=== PATIENT | female | born 1970 | race Caucasian/White ===

== ENCOUNTER → 2019-03-07 | Outpatient (CLI) | payer OTHER | END | disposition home or self-care (01) | LOC: LAB EV 18:35 → LAB SHORT 18:35 | DX: N39.0 Urinary tract infection, site not specified (principal) | CPT/HCPCS: 87077; 87086; 87186 ==

== ENCOUNTER → 2019-06-26 | Outpatient (CLI) | payer OTHER | LOC: LAB EV 19:04 → LAB SHORT 19:04 | DX: N39.0 Urinary tract infection, site not specified (principal) | CPT/HCPCS: 87077; 87086; 87147; 87186 ==

== ENCOUNTER → 2019-08-10 | Outpatient (CLI) | payer OTHER | LOC: LAB SHORT 19:13 → LAB EV 19:13 | DX: N39.0 Urinary tract infection, site not specified (principal) | CPT/HCPCS: 87077; 87086; 87147; 87186 ==

== ENCOUNTER → 2019-09-13 | Outpatient (CLI) | payer OTHER | LOC: LAB EV 18:48 → LAB SHORT 18:48 | DX: N39.0 Urinary tract infection, site not specified (principal) | CPT/HCPCS: 87077; 87086; 87186 ==

== ENCOUNTER → 2019-09-20 | Outpatient (CLI) | payer OTHER | END | disposition home or self-care (01) | LOC: LAB 18:37 → LAB SHORT 18:37 | DX: R82.90 Unspecified abnormal findings in urine (principal) | CPT/HCPCS: 87086 ==

== ENCOUNTER 2019-09-30 22:01 | Emergency (ER) | payer OTHER ==
[~2019-09-30] VITALS: Ht 170.2 cm; Wt 158.8 kg
[2019-09-30] MEDS ORDERED: Xylocaine 2% In20 ML INJ (22:38)
[2019-09-30] MEDS ORDERED: NYST237S MT (22:51)
== END 2019-09-30 22:58 | disposition home or self-care (01) ==
LOC: ER 22:01
DX: K13.0 Diseases of lips (principal)
CPT/HCPCS: 99282

== ENCOUNTER → 2020-02-07 | Outpatient (CLI) | payer OTHER ==
[~2020-02-07] MED LIST: NYST237S MT; Xylocaine 2% In20 ML INJ
== END ==
LOC: LAB SHORT 19:29 → LAB 19:29
PROVIDERS: Nurse Practitioner Family
DX: Z01.419 Encounter for gynecological examination (general) (routine) without abnormal findings (principal)
CPT/HCPCS: G0145